=== PATIENT | female | born 1955 | race Caucasian/White ===

== ENCOUNTER → 2018-05-28 | Outpatient (CLI) | payer MEDICARE | END | disposition home or self-care (01) | LOC: RAH 10:41 | PROVIDERS: ATTEND Internal Medicine Critical Care Medicine | DX: N63.21 Unspecified lump in the left breast, upper outer quadrant (principal) | CPT/HCPCS: 77066 ==

== ENCOUNTER → 2018-06-12 | Outpatient (CLI) | payer MEDICARE | END | disposition home or self-care (01) | LOC: RAH 12:33 | PROVIDERS: ATTEND Internal Medicine Critical Care Medicine | DX: R92.8 Other abnormal and inconclusive findings on diagnostic imaging of breast (principal) | CPT/HCPCS: 76641; 77065 ==

== ENCOUNTER 2018-10-30 10:16 | Inpatient (IN) | payer MEDICARE | END 2018-11-02 18:12 | disposition home or self-care (01) | LOC: EDH 10:16 → EDHIP 12:28 → 2DH 17:02 | DX: I21.4 Non-ST elevation (NSTEMI) myocardial infarction (principal); I16.0 Hypertensive urgency; R51 Headache; F17.200 Nicotine dependence, unspecified, uncomplicated; F10.20 Alcohol dependence, uncomplicated; M51.9 Unspecified thoracic, thoracolumbar and lumbosacral intervertebral disc disorder; R74.8 Abnormal levels of other serum enzymes ==

== ENCOUNTER → 2018-11-27 | Outpatient (CLI) | payer MEDICARE ==
[~2018-11-27] MED LIST: ASPI-1005 PO; ATOR20TA65 PO; LISI10TA7 PO; METO25 PO; PRAM0.129 PO
== END | disposition home or self-care (01) ==
LOC: RAH 09:58
PROVIDERS: ATTEND Internal Medicine Critical Care Medicine
DX: I70.1 Atherosclerosis of renal artery (principal); I10 Essential (primary) hypertension
CPT/HCPCS: 76770; 93975

== ENCOUNTER → 2019-06-14 | Outpatient (CLI) | payer MEDICARE | END | disposition home or self-care (01) | LOC: RAH 09:59 | PROVIDERS: ATTEND Internal Medicine Critical Care Medicine | DX: Z12.31 Encounter for screening mammogram for malignant neoplasm of breast (principal); Z96.89 Presence of other specified functional implants | CPT/HCPCS: 77067 ==

== ENCOUNTER 2022-05-22 23:16 | Emergency (ER) | payer MEDICARE ==
[~2022-05-22] VITALS: Ht 165.1 cm; Wt 97.6 kg
[~2022-05-22 23:16] MED LIST changes: +LISI10TA24 PO; -LISI10TA7 PO
[2022-05-23] MEDS ORDERED: KETOROLAC 30MG VIAL (30MG/ML) IM ONE
[2022-05-23] MEDS ORDERED: ACET-2079 PO (00:31)
[2022-05-23 01:00] VITALS: BP 149/75
== END 2022-05-23 01:11 | disposition home or self-care (01) ==
LOC: EDH 23:16
DX: S52.121A Displaced fracture of head of right radius, initial encounter for closed fracture (principal); I10 Essential (primary) hypertension; Z88.0 Allergy status to penicillin; Z88.2 Allergy status to sulfonamides; Z79.82 Long term (current) use of aspirin; Z79.899 Other long term (current) drug therapy; Z98.890 Other specified postprocedural states; X50.1XXA Overexertion from prolonged static or awkward postures, initial encounter; Y93.89 Activity, other specified; Y92.89 Other specified places as the place of occurrence of the external cause; Y99.8 Other external cause status
CPT/HCPCS: 99283; 29105; 73080; 96372; J1885

== ENCOUNTER 2022-06-01 09:24 | Day surgery (SDC) | payer MEDICARE ==
[2022-05-31 10:31] LABS: CREATININE 0.7 mg/dL (0.5-1.5); POTASSIUM 4.2 mmol/L (3.5-5.1)
[2022-05-31 10:34] LABS: INR 0.93 (0.85-1.15)
[2022-05-31 10:35] LABS: PARTIAL THROMBOPLASTIN TIME 27.4 SEC (26.3-35.5)
[2022-05-31 11:21] VITALS: BP 171/81
[2022-06-01] VITALS (16 sets, daily range): BP systolic 111–155; BP diastolic 59–81
[~2022-06-01] VITALS: Ht 165.1 cm; Wt 96.6 kg
[~2022-06-01 09:24] MED LIST changes: +ACET-2079 PO; -ASPI-1005 PO; +CLINDAMYCIN IVPB 900MG/50ML 50 ML IV SCH; -LISI10TA24 PO; +LISI1TAB53 PO; -METO25 PO; +METO25TA6 PO
[2022-06-01] MEDS ORDERED: LACTATED RINGERS 1000ML 1,000 ML IV ONE (09:54)
[2022-06-01] MEDS ORDERED: SUCCINYLCHOLINE 200MG/10ML SYR ONE (10:49)
[2022-06-01] MEDS ORDERED: ONDANSETRON 4MG INJ ONE (10:49)
[2022-06-01] MEDS ORDERED: LIDOCAINE PF 100MG/5ML (2%) SYRINGE 5ML ONE ×2 (10:49→13:19)
[2022-06-01] MEDS ORDERED: MIDAZOLAM HCL 1 MG/ML 2ML VIAL ONE (10:50)
[2022-06-01] MEDS ORDERED: PROPOFOL 10 MG/ML 20ML VIAL IV ONE (10:50)
[2022-06-01] MEDS ORDERED: DEXAMETHASONE SOD PHOSPHATE 10MG/ML 1ML VIAL ONE (10:50)
[2022-06-01] MEDS ORDERED: GLYCOPYRROLATE 1 MG/5 ML SYRINGE ONE (10:50)
[2022-06-01] MEDS ORDERED: NEOSTIGMINE 5MG/5ML SYR IV ONE (10:50)
[2022-06-01] MEDS ORDERED: ROCURONIUM 10MG/1ML SYR 10 MG/ML ML ONE (10:51)
[2022-06-01] MEDS ORDERED: FENTANYL CITRATE PF 50 MCG/1 ML 5ML AMP IV ONE (10:56)
[2022-06-01] MEDS ORDERED: EPHEDRINE SULFATE 50 MG/ML AMPULE ONE (12:46)
[2022-06-01] MEDS ORDERED: SUGAMMADEX SODIUM 200 MG/2 ML VIAL IV ONE (13:26)
== END 2022-06-01 15:15 | disposition home or self-care (01) ==
LOC: DAH 09:24
PROVIDERS: ATTEND Orthopaedic Surgery Orthopaedic Surgery of the Spine
DX: S52.121A Displaced fracture of head of right radius, initial encounter for closed fracture (principal); Z20.822 Contact with and (suspected) exposure to COVID-19; I10 Essential (primary) hypertension; E66.9 Obesity, unspecified; E78.5 Hyperlipidemia, unspecified; Z98.890 Other specified postprocedural states; Z90.710 Acquired absence of both cervix and uterus; Z88.0 Allergy status to penicillin; Z88.2 Allergy status to sulfonamides; Z72.89 Other problems related to lifestyle; Z79.899 Other long term (current) drug therapy; Z79.01 Long term (current) use of anticoagulants; X58.XXXA Exposure to other specified factors, initial encounter; Y93.89 Activity, other specified; Y92.89 Other specified places as the place of occurrence of the external cause; Z68.35 Body mass index [BMI] 35.0-35.9, adult
CPT/HCPCS: 80048; 85610; 85730; 87426; 36415; 93005; 64415; 24200; 73080; 76942; A4663; A4606; Q4050; J7120; J3010; J0330; J3490 ×2; J1100; J2710; J2001 ×2; J2250; J2704; J2405; A6223; A4215; A4223; A4222; A4221; A4600

== ENCOUNTER → 2023-06-15 | Outpatient (CLI) | payer MEDICARE ==
[~2023-06-15] MED LIST changes: -CLINDAMYCIN IVPB 900MG/50ML 50 ML IV SCH
== END | disposition home or self-care (01) ==
LOC: RAH 10:47
PROVIDERS: ATTEND Physician Assistant Medical
DX: Z12.31 Encounter for screening mammogram for malignant neoplasm of breast (principal)
CPT/HCPCS: 77067